=== PATIENT | male | born 1995 | race African-American/Black ===

== ENCOUNTER 2025-05-11 16:47 | Emergency (ER) | payer SELFPAY ==
[2025-05-11] MEDS ORDERED: Ketorolac Tromethamine 30 MG (1 mL) VIAL ONE (17:53)
== END 2025-05-11 20:07 | disposition home or self-care (01) ==
LOC: ERS 16:47
DX: M54.2 Cervicalgia (principal); M25.561 Pain in right knee; M79.641 Pain in right hand; V47.5XXA Car driver injured in collision with fixed or stationary object in traffic accident, initial encounter; Y92.410 Unspecified street and highway as the place of occurrence of the external cause
CPT/HCPCS: 70450; 72125; 96372; J1885; J3010